=== PATIENT | female | born 1995 | race Hispanic/Latino ===

== ENCOUNTER 2024-09-14 22:11 | Emergency (ER) | payer SELFPAY ==
[2024-09-14 22:37] LABS: Absolute Basophils 0.1 K/uL (0-0.5); Absolute Eosinophils 0.1 K/uL (0-0.5); Absolute Lymphocytes (CBC) 1.5 K/uL (0.7-4.9); Absolute Monocytes 0.7 K/uL (0.1-1.3); Absolute Neutrophil 5.7 K/uL (1.8-8.0); Eosinophils % 1.2 % (0-4.4); Hematocrit 39.8 % (36.0-45.0); Hemoglobin 13.1 g/dL (12.0-15.0); Lymphocytes % 18.1 % (15.3-44.8); MCH 28.1 pg (27.0-35.0); MCHC 32.9 g/dL (32.0-36.0); MCV 85.4 fL (80-100); MPV 7.1 fL (7.6-11.3); Monocytes % 9.1 % (3.3-12.3); Neutrophils % 70.6 % (41.7-73.7); Platelets 402 thou/uL (152-406); RBC Red Blood Cell Count 4.66 M/uL (3.86-4.86)
[2024-09-14 22:48] LABS: Anion Gap 8.5 mEq/L (5.0-15.0); Potassium 3.5 mEq/L (3.5-5.1)
[2024-09-14 23:06] LABS: Specific Gravity 1.021 (1.005-1.030); Sqamous Epithelial <5 /HPF (None Seen); Urine Bacteria None Seen /HPF (<20); Urine Bilirubin NEGATIVE (Negative); Urine Blood 3+ (OVER) (Negative); Urine Clarity Extremely Turbid (Clear); Urine Color Light-Orange (Yellow); Urine Culture Reflex Order NOT NEEDED; Urine Glucose NEGATIVE (Negative); Urine Ketones NEGATIVE (Negative); Urine Microscopic Reflex YN ORDER UMIC; Urine Mucus Slight /HPF (None Seen); Urine Nitrite NEGATIVE (Negative); Urine Protein TRACE (Negative); Urine RBC >50 /HPF (None Seen); Urine Urobilinogen Normal (Normal); Urine pH 6.5 (5.0-7.0)
[2024-09-14 23:07] LABS: Specific Gravity 1.021 (1.005-1.030)
[2024-09-14] MEDS ORDERED: KETOROLAC 30 MG/ML INJ ONE (23:39)
[2024-09-14] MEDS ORDERED: ONDANSETRON 4 MG/2 ML VIAL ONE (23:43)
--- NOTE | 2024-09-15 00:28 | RAD REPORT ---
EXAM DESCRIPTION: Transvaginal Study Probe RadLex: US PELVIS TRANSVAGINAL CLINICAL HISTORY: Abd pain;Vaginal bleeding COMPARISON: None TECHNIQUE: Transabdominal and transvaginal ultrasound was performed. Doppler interrogation was perfor med of the ovaries. FINDINGS: Measurements: Uterus: 9.2 x 5.3 x 5.5 cm Endometrial stripe: 8 mm Right ovary: 3 x 2 x 2.4 cm Left ovary: Not seen Ultrasound findings: Uterus: The uterine echotexture is normal. No uterine mass noted. Small cervical nabothian cysts. Endometrial stripe: The endometrial stripe is within normal limits. Right ovary: The right ovary is within normal limits. There is normal venous and arterial Doppler elissa w. Left ovary: Not seen Free fluid: None. IMPRESSION: 1. Normal sonographic appearance of the uterus and right ovary. 2. Left ovary not seen. Electronically signed by: Bienvenido Gomez MD 09/15/2024 12:24 AM [facility] Workstation: [employer] [id number] Due to temporary technical issues with the PACS/[employer] reporting system, reports are being signed by the in-house radiologist without review as a courtesy to ensure prompt reporting the interpreting radiologist is fully responsible for the content of the report. Transcribed Date/Time: 09/15/2024 12:28 AM
--- NOTE | 2024-09-15 00:33 | EDPHYS ---
Physician Documentation [facility] Name: Thi Docekry Age: 29 yrs Sex: Female : 1995 Arrival Date: 09/14/2024 Time: 22:11 Bed 3 Private MD: ED Physician Kuldeep Barnes HPI: 09/15 00:34 This 29 yrs old Female presents to ER via EMS with complaints of Vaginal kb Bleeding, Abdominal Pain. 00:34 Pt is a 29 year old female who presents for vaginal bleeding that started this morning kb and has been heavier than normal since about 1500, as well as lower abd pain/cramping. Denies any alleviating or aggravating factors. Denies n/v/d, fever. 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 - Infectious Disease History:: Denies. - Social history:: Smoking status: Patient denies any tobacco usage or history of. Patient/guardian denies using alcohol, street drugs, IV drugs. ROS: 09/15 00:35 Constitutional: As per HPI kb Exam: 00:35 Constitutional: This is a well developed, well nourished patient who is awake, alert, kb and in no acute distress. Head/Face: Normocephalic, atraumatic. ENT: Moist Mucous membranes Cardiovascular: Regular rate Respiratory: Respirations even and unlabored. No increased work of breathing. Talking in full sentences Skin: Warm, dry with normal turgor. Normal color. MS/ Extremity: Pulses equal, no cyanosis. Neurovascular intact. Full, normal range of motion. Neuro: Awake and alert, GCS 15, oriented to person, place, time, and situation. 00:35 Abdomen/GI: Inspection: abdomen appears normal, Bowel sounds: normal, Palpation: soft, in all quadrants, mild abdominal tenderness, in the suprapubic area, right lower quadrant and left lower quadrant, Vital Signs: 09/14 22:16 BP 142 / 111; Pulse 115; Resp 18; Temp 97.9; Pulse Ox 100% ; Pain 10/10; jj7 09/15 00:22 BP 137 / 90; Pulse 81; Resp 18; Pulse Ox 100% on R/A; br2 09/14 22:16 Pain Scale: Adult jj7 MDM: 09/14 22:15 Medical Screening Exam initiated kb 09/15 00:35 Differential diagnosis: dysmenorrhea, menometrorrhagia, menorrhea, ovarian cyst, kb uterine fibroids, vaginosis. Data reviewed: vital signs, nurses notes. Historians other than the Patient: EMS: [facility]. Law enforcement: [place]. Counseling: I had a detailed discussion with the patient and/or guardian regarding the historical points, exam findings, and any diagnostic results supporting the discharge/admit diagnosis, lab results, radiology results, the need for outpatient follow up, an OB/Gyne specialist, to return to the emergency department if symptoms worsen or persist or if there are any questions or concerns that arise at home. 09/14 22:16 Order name: CBC with Diff; Complete Time: 22:47 kb 09/14 22:16 Order name: BMP; Complete Time: 22:57 kb 09/14 22:16 Order name: Test, Urine; Complete Time: 23:15 kb 09/14 22:16 Order name: Urinalysis w/ reflexes; Complete Time: 23:15 kb 09/14 22:16 Order name: US Transvaginal Study (Probe) 09/14 22:16 Order name: IV Start; Complete Time: 22:51 kb Administered Medications: 09/14 23:42 Drug: Ketorolac IVP 15 mg IVP once Route: IVP; Site: right antecubital; br2 09/15 00:45 Follow up: Response: Marked relief of symptoms; Pain is decreased j7 09/14 23:45 Drug: Ondansetron IVP 4 mg IVP once; over 2 minutes Route: IVP; Site: right antecubital;jj7 09/15 00:46 Follow up: Response: Marked relief of symptoms; Nausea is decreased j7 Disposition Summary: 01/14/25 00:33 Discharge Ordered Notes: Location: Home kb Condition: Stable kb Diagnosis - Dysmenorrhea, unspecified kb Followup: kb - With: Private Physician - When: 2 - 3 days - Reason: Recheck today's complaints, Continuance of care, Re-evaluation by your physician Followup: kb - With: Emergency Department - When: As needed - Reason: Worsening of condition Discharge Instructions: - Discharge Summary Sheet kb - Dysmenorrhea, [id number] kb Forms: - Medication Reconciliation Form kb - Antibiotic Education kb - Prescription Opioid Use kb - Patient Portal Instructions kb - Leadership Thank You Letter kb Prescriptions: - Diclofenac Sodium 75 mg Oral tablet, delayed release (enteric coated) - take 1 tablet ORAL route 2 times per day As needed; 30 tablet; Refills: 0, kb Product Selection Permitted Addendum: 09/21/2024 09:14 I was immediately available for consultation during this patient's visit. I did not e c2 personally see the patient or discuss the patient with the PRASHANT. . Signatures: Dispatcher [employer] Idalia Toledo, BRUNO-C BRUNO-Sera Valero, RN RN jj7 Kuldeep Barnes MD MD ec2 Ami Perea RN RN br2 Corrections: (The following items were deleted from the chart) 09/14 22:16 22:16 Pelvis Complete+US.RAD.BRZ ordered. KATERINA BORGES
--- NOTE | 2024-09-15 00:33 | ER ---
Nurse's Notes [facility] Name: Thi Dockery Age: 29 yrs Sex: Female : 1995 Arrival Date: 09/14/2024 Time: 22:11 Bed 3 Private MD: Diagnosis: Dysmenorrhea, unspecified Presentation: 09/14 22:16 Chief complaint: Patient states: LOWER ABD PAIN AND VAGINAL BLEEDING STARTED EARLIER jj7 TODAY. STATES SHE IS BLEEDING THROUGH 1 PAD AN HOUR. STATES SHE HAS BEEN HAVING IRREGULAR PERIODS. Coronavirus screen: At this time, the client does not indicate any symptoms associated with coronavirus-19. Ebola Screen: No symptoms or risks identified at this time. Initial Sepsis Screen: Does the patient meet any 2 criteria? HR > 90 bpm. Yes Does the patient have a suspected source of infection? No. Patient's initial sepsis screen is negative. Risk Assessment: Do you want to hurt yourself or someone else? Patient reports no desire to harm self or others. Onset of symptoms was September 14, 2024. 22:16 Method Of Arrival: EMS: [facility] j7 22:16 Acuity: RAÚL 3 jj7 Triage Assessment: 22:16 General: Appears in no apparent distress. uncomfortable, Behavior is cooperative, jj7 appropriate for age, crying. Pain: Complains of pain in right lower quadrant and left lower quadrant Pain currently is 10 out of 10 on a pain scale. : Reports pain in bilateral in suprapubic area vaginal bleeding that is bright red, heavy flow. 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 - Infectious Disease History:: Denies. - Social history:: Smoking status: Patient denies any tobacco usage or history of. Patient/guardian denies using alcohol, street drugs, IV drugs. Screenin:16 [facility] ED Fall Risk Assessment (Adult) History of falling in the last 3 months, jj7 including since admission No falls in past 3 months (0 pts) Confusion or Disorientation No (0 pts) Intoxicated or Sedated No (0 pts) Impaired Gait No (0 pts) Mobility Assist Device Used No (0 pt) Altered Elimination No (0 pt) Score/Fall Risk Level 0 - 2 = Low Risk Oriented to surroundings, Maintained a safe environment, Educated pt \T\ family on fall prevention, incl call for assistance when getting out of bed, Assessed \T\ reinforced patient's understanding of fall precautions. Abuse screen: Denies threats or abuse. Nutritional screening: No deficits noted. Tuberculosis screening: No symptoms or risk factors identified. Assessment: 22:16 Reassessment: SEE TRIAGE ASSESSENT. jj7 Vital Signs: 22:16 BP 142 / 111; Pulse 115; Resp 18; Temp 97.9; Pulse Ox 100% ; Pain 10/10; jj7 09/15 00:22 BP 137 / 90; Pulse 81; Resp 18; Pulse Ox 100% on R/A; br2 09/14 22:16 Pain Scale: Adult j ED Course: 09/14 22:15 Patient arrived in ED. jj7 22:15 Idalia Sinha FNP-C is [facility]. kb 22:15 Kuldeep Barnes MD is Attending Physician. kb 22:16 Arm band placed on right wrist. Patient placed in an exam room, on a stretcher. jj7 22:16 Patient has correct armband on for positive identification. Bed in low position. Call j light in reach. Side rails up X2. AGRICULTURE INTERN AT BEDSIDE. Provided Education on: USE OF CALL GUILLEN. Warm blanket given. 22:16 Inserted saline lock: 20 gauge in right antecubital area, using aseptic technique. jj7 Blood collected. Flushed with 10 mL NS. 22:20 Triage completed. jj7 22:26 Sear Abarca RN is Primary Nurse. jj7 22:51 Urinalysis w/ reflexes Sent. jj7 22:51 Test, Urine Sent. jj7 23:36 US Transvaginal Study (Probe) In Process Unspecified. EDMS 09/15 00:43 No provider procedures requiring assistance completed. IV discontinued, intact, jj7 bleeding controlled, No redness/swelling at site. Pressure dressing applied. Administered Medications: 09/14 23:42 Drug: Ketorolac IVP 15 mg IVP once Route: IVP; Site: right antecubital; br2 09/15 00:45 Follow up: Response: Marked relief of symptoms; Pain is decreased jj7 09/14 23:45 Drug: Ondansetron IVP 4 mg IVP once; over 2 minutes Route: IVP; Site: right antecubital;jj7 09/15 00:46 Follow up: Response: Marked relief of symptoms; Nausea is decreased jj7 Medication: 09/14 22:16 VIS not applicable for this client. jj7 Outcome: 09/15 00:33 Discharge ordered by . diane 00:43 Discharged to home with significant other, jj7 00:43 Condition: improved 00:43 Discharge instructions given to patient, Instructed on discharge instructions, follow up and referral plans. medication usage, Demonstrated understanding of instructions, follow-up care, medications, Prescriptions given X 1, 00:47 Patient left the ED. jj7 Signatures: Dispatcher [employer] EDNY Idalia Sinha, PRESCHOOL PROGRAM DIRECTOR-C BRUNO-Sera Valero RN RN jj7 Ami Perea, RN RN br2 Corrections: (The following items were deleted from the chart) 00:46 09/14 03:45 Ondansetron IVP 4 mg IVP in left antecubital jj7 jj7
== END 2024-09-15 00:47 | disposition home or self-care (01) ==
LOC: ER 22:11
DX: N94.6 Dysmenorrhea, unspecified (principal)
CPT/HCPCS: 36415; 76830; 80048; 81001; 81025; 85025; 96374; 96375; 99284; J2405